=== PATIENT | female | born 1945 | race Caucasian/White ===

== ENCOUNTER → 2016-11-23 10:18 | Outpatient (CLI) | payer MEDICARE ==
[2013-10-05 11:11] VITALS: BMI 41.0
[~2016-11-23 10:18] MED LIST: ALDACTONE25 MG PO; BENTYL10 MG PO; COLACE100 MG PO; COUMADIN4 MG PO; COUMADIN5 MG PO; COZAAR50 MG PO; HYZAAR 50-12.51 TAB PO; KLONOPIN1 MG PO; LEVAQUIN750 MG PO; LEVOTHROID75 MCG PO; MIRAPEX1 MG PO; NARCAN INJ0.4 MG/ML IV; NEXIUM40 MG PO; NORCO 5/325 TAB1 TA1 PO; NYSTATIN15 GM TP; OXYCONTIN20 MG PO; PERCOCET 10/3251 TA1 PO; SOMA350 MG PO; TESSALON PERLE100 MG PO; ZOCOR20 MG PO; [UNRECOGNIZED DRUG - OTHER] PO
== END | disposition home or self-care (01) ==
LOC: D.MRI 11-22 13:00
DX: M25.511 Pain in right shoulder (principal)